=== PATIENT | female | born 1965 | race Caucasian/White ===

== ENCOUNTER → 2023-05-05 13:31 | Outpatient (REF) | payer OTHER, SELFPAY | LOC: WDC 13:31 | PROVIDERS: ATTENDING PHYSICIAN Obstetrics & Gynecology; FAMILY PHYSICIAN Family Medicine | DX: Z12.31 Encounter for screening mammogram for malignant neoplasm of breast (principal); R92.8 Other abnormal and inconclusive findings on diagnostic imaging of breast | CPT/HCPCS: 76642; 77063; 77067 ==

== ENCOUNTER → 2023-06-11 06:30 | Day surgery (SDC) | payer OTHER, SELFPAY | LOC: GI 06:30 | PROVIDERS: ATTENDING PHYSICIAN Internal Medicine Gastroenterology | DX: Z12.11 Encounter for screening for malignant neoplasm of colon (principal); Z83.719 Family history of colon polyps, unspecified; K57.30 Diverticulosis of large intestine without perforation or abscess without bleeding; K64.8 Other hemorrhoids; K64.4 Residual hemorrhoidal skin tags; K63.5 Polyp of colon | CPT/HCPCS: 45385; 88305 ==

== ENCOUNTER 2023-07-10 07:18 | Emergency (ER) | payer OTHER, SELFPAY ==
[2023-07-10 07:19] VITALS: BMI 20.6
[2023-07-10 07:29] VITALS: BP 109/66
--- NOTE | 2023-07-10 07:32 | ED.GENMED ---
History of Present Illness
General
Chief Complaint: Dizziness
Time Seen by Provider: 07/10/23 07:24
Travel History
Have you had any contact with someone who has COVID-19?: No
Do you have any symptoms of coronavirus? Fever > 100 degrees, chills, cough, shortness of breath, sore throat, loss of taste or smell, muscle aches, or headache?: No
History of Present Illness
History of Present Illness:
58-year-old female with history of migraines and hypothyroidism presents to the emergency department for evaluation of abrupt onset of vertigo developing this morning. She states she awoke at approximately 5:30 AM to let her dog outside, when she
went back to bed she laid down and rolled to her left side, describes the feeling as 'something shifting in my head' and felt an abrupt onset of dizziness/vertigo. She did have several episodes of vomiting. Symptoms are since improved upon
arriving to the emergency department as long she remained stationary. Reports worsening symptoms with any degree of head or neck movement to the left. No vision changes, chest pain, shortness of breath, extremity paresthesias. No recent viral
illness
Past History
Past History
ED Past Medical History: Hypothyroidism
Social History
Tobacco: Non-smoker
Personal:
Living: with family
Review of Systems
Review of Systems
Allergies reviewed?: Yes
All Other Systems: ROS reviewed and negative except as documented in HPI and ROS
Phy Exam
Physical Exam
Physical Exam:
GEN: Well appearing, NAD, WDWN
HEENT: Oral mucosa moist, no scleral icterus, no nasal congestion
Cardiac: Regular rate
Lung: No respiratory distress, no tachypnea
MSK: No gross deformity or injuries
Skin: Good color, no pallor or jaundice, no rashes
Neuro: AO x3; CN II-XII grossly intact. BUE strength 5/5 in all will, sensation intact and symmetric. BLE strength 5/5 in all will, sensation intact and symmetric
Psych: Calm, cooperative
Course
Orders/Labs/Results
Orders:
Orders
07/10/23 07:25
Electrocardiogram (*1) Urgent
Reason for Study: Other
Other Reason for Exam: Possible Stroke
EKG- Treatment ONCE
IV Insert/Care/Rem.- Treatment PRN
07/10/23 07:31
Complete Blood Count/With Diff Urgent
Comprehensive Metabolic Panel Urgent
Magnesium Urgent
Comment: ADD
Phosphorus Urgent
Comment: ADD ON
Vitamin D, 25-Oh Urgent
diazePAM [Valium Injection] 2 mg IV NOW STA
07/10/23 08:01
Add On- LAB Urgent
Tests Added?: mag, phos, 25-OH Vit D, intact PTH, ionized Ca
07/10/23 08:13
Complete Blood Count/With Diff Urgent
Comment: ADD ON
Comprehensive Metabolic Panel Urgent
Intact PTH Includes Calcium Urgent
Ionized Calcium Urgent
Abnormal Lab Results
07/10/23 07/10/23
07:31 08:13
WBC 4.0 L 10^3/uL
(4.8-10.8)
RBC 4.06 L 10^6/uL
(4.20-5.40)
MCH 32.8 H pg
(27.0-31.0)
MPV 10.9 H fL
(7.4-10.4)
Potassium 3.3 L mmol/L
(3.5-5.1)
Chloride 116 H mmol/L
(98-107)
Carbon Dioxide 21 L mmol/L
(22-30)
Creatinine 0.5 L mg/dL
(0.6-1.0)
Glucose 115 H mg/dl 106 H mg/dl
(70-99) (70-99)
Calcium 6.7 L* mg/dl
(8.4-10.2)
Magnesium 1.5 L mg/dl
(1.6-2.3)
Total Protein 4.8 L g/dl
(6.3-8.2)
Albumin 2.7 L g/dl
(3.5-5.0)
07/10/23 08:13
Vital Signs
Initial and Last Documented VS:
Initial Vital Signs
Resp
13
07/10/23 07:21
Last Documented Vital Signs
Temp Pulse Resp BP Pulse Ox
97.4 F 62 13 100/62 100
07/10/23 07:29 07/10/23 08:34 07/10/23 07:21 07/10/23 08:34 07/10/23 08:34
MDM/Problems Addressed
MDM/Problems Addressed:
Patient's symptoms are most consistent with benign positional vertigo. His symptoms completely resolved after being given IV diazepam. No recent viral syndrome to suggest vestibular neuritis. Patient's initial labs were markedly abnormal with
hypocalcemia and hyperchloremia, initially add-on specimens were obtained to evaluate for source of hypocalcemia however repeat CMP was obtained as this was drawn from prehospital IV line and was confirmed artifactual labs saline dilution. Repeat
labs are reassuring, discharged in stable condition, outpatient PT orders written for vestibular therapy should symptoms not improve
*Critical Care Note
Total Time (30-74mins, 75-104mins- exclusive of procedures): Not Applicable
ED Attending Note
-
Portions of this chart may have been created with voice recognition software.� Occasional wrong word or��sound alike� substitutions may have occurred due to the inherent limitations of voice recognition software.
Discharge Plan
Departure
Patient Disposition: Home (Routine Discharge)
Date of Disposition: 07/10/23
Time of Disposition: 09:22
Patient with high blood pressure during this ER visit?: No
Discharge Problem:
Benign paroxysmal positional vertigo of left ear
Instructions: Vertigo (a Type of Dizziness) (DC)
Prescriptions:
New
diazepam 5 mg tablet
5 mg PO TID PRN (Reason: vertigo) Qty: 10 0RF
No Action
rizatriptan [Maxalt-ABAP DEVELOPER] 5 MG tablet,disintegrating
5 mg PO PRN PRN (Reason: migraines)
Levothyroxine
0 mg PO DAILY
Patient Comments:
does not know dose
ondansetron 4 MG tablet,disintegrating
4 mg PO TIDPRN PRN (Reason: nausea/vomiting) Qty: 12 0RF
Referrals:
Jennifer Mijares MD [Family Provider] -
Activity Restrictions/Additional Instructions:
Schedule physical therapy if your symptoms do not improve within the next 2 to 3 days
Interventions
Interventions:
*Risk Screen - Suicide Last Done: 07/10/23 07:21
*General Assessment Last Done: 07/10/23 07:21
*Neglect/Abuse Screening Last Done: 07/10/23 07:21
ED- Fall Risk Assessment Last Done: 07/10/23 09:29
*ED COVID-19 Vaccine History Last Done: 07/10/23 09:29
*Nursing Disposition Last Done: 07/10/23 09:29
ED- Neurological Assessment Last Done: 07/10/23 07:21
ED- Cardiac Assessment Last Done: 07/10/23 09:29
Discharge Date and Time
Discharge Date/Time: 07/10/23 09:29
Print Language: [place]
[2023-07-10] MEDS: VALIUM INJECTION 2 MG IV (07:34)
[2023-07-10 07:50] LABS: % Basophils 1.2 % (0-2); % Eosinophils 5.7 % (0-6); % Immature Granulocytes 0.5 % (0-0.5); % Lymphocytes 35.2 % (20.5-51.1); % Monocytes 6.7 % (1.7-9.3); % Neutrophils 50.7 % (42.2-75.2); Absolute Basophils 0.1 10^3/uL (0-0.2); Absolute Eosinophils 0.2 10^3/uL (0-0.7); Absolute Lymphocytes 1.4 10^3/uL (1.2-3.4); Absolute Monocytes 0.3 10^3/uL (0.1-0.6); Hematocrit 38.8 % (37.0-47.0); Hemoglobin 13.3 g/dL (12.0-16.0); Mean Corp Hgb Conc. 34.3 g/dL (33.0-37.0); Mean Corpuscular Hgb 32.8 pg (27.0-31.0); Mean Corpuscular Volume 95.6 fL (81.0-99.0); Mean Platelet Volume 10.9 fL (7.4-10.4); Nucleated Red Blood Cells % 0 %; Platelet Count 167 10^3/uL (130-400); Red Blood Cell Count 4.06 10^6/uL (4.20-5.40); Red Cell Dist. Width 11.9 % (11.5-14.5)
[2023-07-10 07:54] LABS: ALT (SGPT) 12 U/L (0-35); AST (SGOT) 18 U/L (14-36); Albumin 2.7 g/dl (3.5-5.0); Alkaline Phosphatase 54 U/L (38-126); Blood Urea Nitrogen 14 mg/dl (7-17); Calcium 6.7 mg/dl (8.4-10.2); Carbon Dioxide 21 mmol/L (22-30); Chloride 116 mmol/L (98-107); Estimated Creatinine Clearance 91 ml/min; Glucose 115 mg/dl (70-99); Potassium 3.3 mmol/L (3.5-5.1); Sodium 137 mmol/L (135-145); Total Bilirubin 0.5 mg/dl (0.2-1.3); Total Protein 4.8 g/dl (6.3-8.2); eGFR > 60.00
[2023-07-10 08:34] VITALS: BP 100/62
[2023-07-10 09:07] LABS: Magnesium 1.5 mg/dl (1.6-2.3); Phosphorus 2.9 mg/dl (2.5-4.5)
[2023-07-10 09:15] LABS: ALT (SGPT) 17 U/L (0-35); AST (SGOT) 21 U/L (14-36); Alkaline Phosphatase 72 U/L (38-126); Blood Urea Nitrogen 16 mg/dl (7-17); Carbon Dioxide 29 mmol/L (22-30); Chloride 107 mmol/L (98-107); Estimated Creatinine Clearance 78 ml/min; Glucose 106 mg/dl (70-99); Potassium 4.5 mmol/L (3.5-5.1); Sodium 137 mmol/L (135-145); Total Bilirubin 0.6 mg/dl (0.2-1.3); Total Protein 6.4 g/dl (6.3-8.2); eGFR > 60.00
[2023-07-10 12:54] LABS: Vitamin D, 25-OH*** 42.3 ng/mL (30-80)
[2023-07-10 18:10] LABS: Intact PTH 51.8 pg/ml (13.6-85.8)
== END 2023-07-10 09:29 | disposition home or self-care (01) ==
LOC: EMR 07:18
PROVIDERS: Physician Assistant; EMERGENCY PHYSICIAN Emergency Medicine; FAMILY PHYSICIAN Family Medicine
DX: H81.12 Benign paroxysmal vertigo, left ear (principal)
CPT/HCPCS: 99284; 96374; 80053; 82306; 83735; 83970; 84100; 85025; 93005

== ENCOUNTER 2023-09-13 16:17 | Outpatient (RCR) | payer OTHER, SELFPAY | END 2023-09-14 06:38 | disposition home or self-care (01) | LOC: RPT 16:17 | PROVIDERS: ATTENDING PHYSICIAN Orthopaedic Surgery; FAMILY PHYSICIAN Family Medicine | DX: M54.12 Radiculopathy, cervical region (principal) | CPT/HCPCS: 97110; 97162; 97535 ==

== ENCOUNTER → 2023-11-09 14:54 | Outpatient (REF) | payer OTHER, SELFPAY | LOC: WDC 14:54 | PROVIDERS: ATTENDING PHYSICIAN Obstetrics & Gynecology; FAMILY PHYSICIAN Family Medicine | DX: R92.2 Inconclusive mammogram (principal) | CPT/HCPCS: 76641 ==

== ENCOUNTER → 2024-05-11 14:49 | Outpatient (REF) | payer OTHER, SELFPAY | LOC: WDC 14:49 | PROVIDERS: ATTENDING PHYSICIAN Obstetrics & Gynecology; FAMILY PHYSICIAN Family Medicine | DX: Z12.31 Encounter for screening mammogram for malignant neoplasm of breast (principal) | CPT/HCPCS: 77063; 77067 ==

== ENCOUNTER → 2024-06-10 08:57 | Outpatient (REF) | payer OTHER, SELFPAY | LOC: MRI 3T 08:57 | PROVIDERS: ATTENDING PHYSICIAN Student in an Organized Health Care Education/Training Program; FAMILY PHYSICIAN Family Medicine | DX: G43.109 Migraine with aura, not intractable, without status migrainosus (principal) | CPT/HCPCS: 70551 ==

== ENCOUNTER → 2024-12-07 14:07 | Outpatient (REF) | payer OTHER, SELFPAY | LOC: DHSLP 14:07 | PROVIDERS: ATTENDING PHYSICIAN Internal Medicine; FAMILY PHYSICIAN Family Medicine | DX: G47.19 Other hypersomnia (principal); G47.00 Insomnia, unspecified; G47.8 Other sleep disorders; R06.83 Snoring | CPT/HCPCS: 95800 ==

== ENCOUNTER → 2025-02-05 13:19 | Outpatient (REF) | payer OTHER, SELFPAY | LOC: RCS 13:19 | PROVIDERS: ATTENDING PHYSICIAN Internal Medicine Cardiovascular Disease; FAMILY PHYSICIAN Family Medicine | DX: I49.3 Ventricular premature depolarization (principal) | CPT/HCPCS: 93225; 93226 ==